=== PATIENT | male | born 1985 | race Caucasian/White ===

== ENCOUNTER 2017-06-18 19:10 | Emergency (ER) | payer SELFPAY ==
[2017-06-18] MEDS ORDERED: ONDANSETRON HCL INJ/PF 4 MG/2 ML SDV ONE (19:24)
[2017-06-18] MEDS ORDERED: NALOXONE HCL INJ 2 MG/2 ML DISP.SYRIN IM ONE (19:28)
[2017-06-18] MEDS ORDERED: ONDANSETRON HCL INJ/PF 4 MG/2 ML SDV IV ONE (19:29)
[2017-06-18] MEDS ORDERED: NALOXONE HCL INJ 2 MG/2 ML DISP.SYRIN IV ONE (19:29)
[2017-06-18] MEDS ORDERED: NORMAL SALINE 1000 ML 1,000 ML IV ONE (19:30)
--- NOTE | 2017-06-18 19:33 | ER Document Report ---
ED General - General Stated Complaint: UNRESPONSIVE Time Seen by Provider: 06/18/17 19:28 Mode of Arrival: Wheelchair Information source: Emergency Med Personnel Cannot obtain history due to: Other Notes: History as per girlfriend: This is a 38-year-old man history of alcohol and drug abuse who was out with his girlfriend. She states that she went into the store to buy something and when she came out, the patient was not breathing. She was a short distance from the hospital and drove immediately here. The patient is apneic and cyanotic and being carried in to the emergency room. - HPI Onset: Just prior to arrival Onset/Duration: Sudden Quality of pain: No pain Severity: None Pain Level: Denies Associated symptoms: denies: Chest pain, Fever, Shortness of breath Exacerbated by: Denies Relieved by: Denies Similar symptoms previously: No Recently seen / treated by doctor: No - Related Data Allergies/Adverse Reactions: No Known Allergies Allergy (Verified 06/18/17 23:16) Past Medical History - General Information source: Friend Cannot obtain history due to: Other - Acute respiratory arrest - Social History Smoking Status: Unknown if Ever Smoked Cigarette use (# per day): No Chew tobacco use (# tins/day): No Frequency of alcohol use: Heavy Drug Abuse: Other - Opiate Lives with: Alone Family History: None Patient has suicidal ideation: No Patient has homicidal ideation: No - Medical History Medical History: Negative Surgical Hx: Negative Review of Systems - Review of Systems -: Yes ROS unobtainable due to patient's medical condition Physical Exam - Vital signs Vitals: Pulse Resp BP Pulse Ox 115 H 13 142/85 H 100 06/18/17 19:14 06/18/17 19:14 06/18/17 19:14 06/18/17 19:14 Notes: Physical exam: GENERAL: Apneic, cyanotic HEAD: Atraumatic, normocephalic. EYES: Pupils equal round and reactive to light, extraocular movements intact, sclera anicteric, conjunctiva are normal. ENT: TMs normal, nares patent, oropharynx clear without exudates. Moist mucous membranes. NECK: Normal range of motion, supple without obvious mass. LUNGS: Bilateral breath sounds with bagging HEART: Regular rate and rhythm without murmurs, rubs or gallops. ABDOMEN: Soft, normoactive bowel sounds. No tenderness to palpation. No guarding, no rebound. No masses appreciated. EXTREMITIES: Normal range of motion, no pitting or edema. No clubbing or cyanosis. NEUROLOGICAL: Obtunded PSYCH: Obtunded SKIN: Warm, Dry, normal turgor, no rashes or lesions noted. Course - Re-evaluation Re-evalutation: 06/18/17 23:06 Patient is alert and oriented 3. At that a long conversation about him about opiate abuse. He is going to seek treatment tomorrow and he will be going with his girlfriend who is taking him home today. Patient does wish to go home and he is mentating appropriately and competent to go home. He denies any suicidal or homicidal ideation hernandez. He does have a history of IV drug abuse but states he was snorting tonight. - Vital Signs Vital signs: Temp Pulse Resp BP Pulse Ox 98.1 F 90 15 122/67 98 06/18/17 19:35 06/18/17 20:55 06/18/17 22:45 06/18/17 22:07 06/18/17 22:45 - Laboratory Result Diagrams: 06/18/17 19:15 06/18/17 19:15 Laboratory results interpreted by me: 06/18/17 06/18/17 19:15 19:15 WBC 11.5 H RDW 15.0 H Seg Neutrophils % 40.9 L Absolute Lymphocytes 5.2 H Glucose 119 H Discharge - Discharge Clinical Impression: Respiratory arrest, Status post opiate overdose Condition: Stable Disposition: HOME, SELF-CARE Additional Instructions: As of 2017, the [place] Division of Public Health recommends the precription of Narcan (Naloxone) to patient's discharged after an opiod overdose. Naloxone is an injection that reverses the respiratory depression caused by opiates and is life-saving in many cases. Of course, it is recommended that you stop any narcotic or opiate use/abuse. However, if this is not possible, you should always carry the Naloxone with you and let family/friends know that you have this reversal antidote. Information on Naloxone can be found on: www.naloxonesaves.org Additionally: If you are using syringes with drug use, you should know that syringe exchange programs are effective in reducing the rates of HIV and Hepatitis C. Information available for syring programs can be found at: www/ncdhhs.gov/divisions/public-health/lznhy-robdnlli-ikrti-syringe-initiative/ tkggow-uhrjaloz-oadfyltf-[place] Prescriptions: Naloxone HCl [Narcan] 4 mg NS ONCE PRN #1 spray PRN Reason:
[2017-06-18] MEDS ORDERED: METOCLOPRAMIDE HCL INJ/PF 10 MG/2 ML SDV IV ONE (19:42)
[2017-06-18 19:45] LABS: ALANINE AMINOTRANSFERASE 63 U/L (21-72); ALBUMIN 4.8 g/dL (3.5-5.0); ALKALINE PHOSPHATASE 81 U/L (38-126); ANION GAP 13 (5-19); ASPARTATE AMINO TRANSFERASE 33 U/L (17-59); BILIRUBIN,DIRECT 0.2 mg/dL (0.0-0.4); BILIRUBIN,TOTAL 0.5 mg/dL (0.2-1.3); BLOOD UREA NITROGEN 14 mg/dL (7-20); CARBON DIOXIDE 27 mmol/L (22-30); CHLORIDE 102 mmol/L (98-107); GLUCOSE 119 mg/dL (75-110); POTASSIUM 4.2 mmol/L (3.6-5.0); SODIUM 142.2 mmol/L (137-145); TOTAL PROTEIN 7.2 g/dL (6.3-8.2)
[2017-06-18 20:08] LABS: ABSOLUTE BASOPHILS # (AUTO) 0.1 10^3/uL (0.0-0.2); ABSOLUTE EOSINOPHILS # (AUTO) 0.4 10^3/uL (0.0-0.6); ABSOLUTE LYMPHOCYTES (AUTO) 5.2 10^3/uL (0.5-4.7); ABSOLUTE MONOCYTES (AUTO) 1.1 10^3/uL (0.1-1.4); ABSOLUTE NEUT (AUTO) 4.7 10^3/uL (1.7-8.2); EOSINOPHILS % (AUTO) 3.4 % (0-6); HEMATOCRIT 47.5 % (37.9-51.0); HEMOGLOBIN 15.8 g/dL (13.5-17.0); MEAN CORPUSCULAR HEMOGLOBIN 30.1 pg (27.0-33.4); MEAN CORPUSCULAR HGB CONC 33.3 g/dL (32.0-36.0); MEAN CORPUSCULAR VOLUME 90 fl (80-97); MONOCYTES % (AUTO) 9.7 % (3-13); PLATELET COUNT 399 10^3/uL (150-450); RED BLOOD COUNT 5.25 10^6/uL (4.35-5.55); SEGMENTED NEUTROPHILS % (AUTO) 40.9 % (42-78); TOTAL CELLS COUNTED % (AUTO) 100 %; WHITE BLOOD COUNT 11.5 10^3/uL (4.0-10.5)
[2017-06-18 23:07] VITALS: BP 113/65
== END 2017-06-18 23:10 | disposition home or self-care (01) ==
LOC: ER 19:10
DX: T40.601A Poisoning by unspecified narcotics, accidental (unintentional), initial encounter (principal); R40.4 Transient alteration of awareness; R09.2 Respiratory arrest; X58.XXXA Exposure to other specified factors, initial encounter
CPT/HCPCS: 99284; 96372; 96361; 96374; 96375; 36415; 82962; 80307; 85025; 80053; J2765; J2405; J2310; J7030